=== PATIENT | female | born 1960 | race Caucasian/White ===

== ENCOUNTER 2018-05-20 11:34 | Emergency (ER) | payer BC, OTHER ==
[2018-05-20] MEDS ORDERED: TORAdol 30 mg Injection IV ONE (13:12)
[2018-05-20] MEDS ORDERED: VALIUM 10 MG/2 ML SYRINGE IV ONE (13:12)
[2018-05-20] MEDS ORDERED: Sodium Chloride 0.9% 1000 ML 1,000 ML IV SCH (13:15)
[2018-05-20] MEDS ORDERED: TORAdol 30 mg Injection ONE (13:17)
[2018-05-20] MEDS ORDERED: Sodium Chloride 0.9% 1000 ML 1,000 ML ONE (13:18)
[2018-05-20 13:29] LABS: BASOPHIL % 0.7 % (0.0-0.4); Basophil (Absolute #) 0.05 (0-0.4); Eosinophil (Absolute #) 0.28 (0-0.5); Granulocyte Absolute (ANC) 4.47 (1.4-6.9); Granulocytes % 63.1 % (36.0-66.0); Hematocrit 39.4 % (35-47); Hemoglobin 13.3 gm/dl (12.0-16.0); Lymphocyte (Absolute #) 1.76 (1.0-4.6); Lymphocytes % 24.9 % (24.0-44.0); Mean Corpuscular Hemoglobin 30.4 pg (26-32); Mean Corpuscular Hgb Concent. 33.8 g/dl (32-36); Mean Platelet Volume 9.3 fl (6-9.5); Monocyte (Absolute #) 0.52 (0.0-1.3); Monocytes % 7.3 % (0.0-12.0); Platelet Count 276 K/mm3 (150-450); Red Blood Count 4.38 M/mm3 (4.1-5.4); Red Cell Distribution Width 12.8 % (11.5-14.0); White Blood Count 7.1 K/mm3 (4.0-10.5)
[2018-05-20] MEDS ORDERED: Zofran 4 MG/2 ML VIAL IV ONE (13:42)
[2018-05-20] MEDS ORDERED: Hydromorphone 1 mg/ml Ampule IV ONE (13:42)
[2018-05-20] MEDS ORDERED: Hydromorphone 1 mg/ml Ampule ONE (13:45)
--- NOTE | 2018-05-20 13:45 | XRAY ---
Indication: Right posterior chest pain. Comparison: None PA/lateral chest demonstrates normal heart and lungs with overlying monitoring leads. Bony thorax intact with mild double curvature scoliosis.
[2018-05-20] MEDS ORDERED: Zofran 4 MG/2 ML VIAL ONE (13:50)
--- NOTE | 2018-05-20 13:50 | XRAY ---
Indication: Scapular pain. No known injury. Comparison: None 3 views of the right shoulder demonstrates tiny humeral head and glenoid process bone islands. No other bony, articular, or soft tissue abnormalities.
[2018-05-20 14:09] LABS: ANION GAP 10.2 MEQ/L (5-15); BLOOD UREA NITROGEN 12 mg/dL (7-17); CHLORIDE 108 mmol/L (98-107); Calcium 9.2 mg/dL (8.4-10.2); Carbon Dioxide 26 mmol/L (22-30); Creatinine 1 0.83 mg/dL (0.52-1.04); Glucose 97 mg/dL (74-106); Potassium 4.1 mmol/L (3.5-5.1); SODIUM 140 mmol/L (137-145)
[2018-05-20 14:24] VITALS: BP 106/71; PULSE 59; O2SAT 96
--- NOTE | 2018-05-20 14:40 | ERPHSYRPT ---
- History of Present Illness Time Seen by Provider: 05/20/18 12:30 Source: patient Exam Limitations: clinical condition Patient Subjective Stated Complaint: PAIN TO RIGHT SHOULDER AND ARM. 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 PT DENIES ANY CHEST PAIN OR SOB STATES SHE FEELS ARM "JUMPING" AND PRESSURE TO ARM AND BELOW ARM Physician History: PATIENT WITH A HISTORY OF LOW BACK PAIN, COMPLAINS OF RIGHT UPPER BACK AND SEVERE RIGHT SHOULDERBLADE PAIN. DENIES INJURY OR TRAUMA. DENIES CHEST PAIN, DYSPNEA, DIAPHORESIS OR PALPITATIONS. Timing/Duration: yesterday Method of Injury: other (DENIES INJURY OR TRAUMA) Back Pain Location: T-spine (ADJACENT TO RIGHT SHOULDER BLADE) Severity of Pain-Max: severe Severity of Pain-Current: severe Modifying Factors: Improves With: movement Associated Symptoms: denies symptoms Allergies/Adverse Reactions: No Known Drug Allergies Allergy (Unverified 05/20/18 12:18) Hx Influenza Vaccination/Date Given: No - Review of Systems Constitutional: No Fever, No Chills Eyes: No Symptoms Ears, Nose, & Throat: No Symptoms Respiratory: No Symptoms, No Cough, No Dyspnea Cardiac: No Symptoms, No Chest Pain, No Edema, No Syncope Abdominal/Gastrointestinal: No Symptoms, No Abdominal Pain, No Nausea, No Vomiting, No Diarrhea Genitourinary Symptoms: No Symptoms, No Dysuria Musculoskeletal: Back Pain, No Neck Pain Skin: No Rash Neurological: No Dizziness, No Focal Weakness, No Sensory Changes Psychological: No Symptoms Endocrine: No Symptoms All Other Systems: Reviewed and Negative - Past Medical History Pertinent Past Medical History: Yes Female Reproductive Disorders: Cervical Cancer - Past Surgical History Past Surgical History: Yes Female Surgical History: Tubal Ligation - Social History Smoking Status: Current every day smoker - Nursing Vital Signs Nursing Vital Signs: Initial Vital Signs Temperature 98.5 F 05/20/18 12:19 Pulse Rate 71 05/20/18 12:19 Respiratory Rate 18 05/20/18 12:19 Blood Pressure 137/88 05/20/18 12:19 O2 Sat by Pulse Oximetry 99 05/20/18 12:19 Pain Scale Pain Intensity 5 - Physical Exam SpO2: 96 - Course EKG Interpreted by Me: RATE, Sinus Rhythm, NORMAL AXIS - Radiology Exams Chest X-ray Interpretation: Discussed w/ radiologist, Negative, No Infiltrates Right Shoulder X-ray Interpretation: Discussed w/ radiologist, Negative Ordered Tests: Active Orders 24 hr Category Date Time Status EKG-ER Only STAT Care 05/20/18 13:10 Active Sling Application STAT Care 05/20/18 14:48 Active CHEST 2 VIEWS (PA AND LAT) Stat Exams 05/20/18 13:10 Completed SHOULDER Stat Exams 05/20/18 13:13 Completed BMP Stat Lab 05/20/18 13:27 Completed CBC W DIFF Stat Lab 05/20/18 13:27 Completed TROPONIN Q3H Lab 05/20/18 13:53 Completed TROPONIN Q3H Lab 05/20/18 16:15 Ordered TROPONIN Q3H Lab 05/20/18 19:15 Ordered TROPONIN Q3H Lab 05/20/18 22:15 Ordered TROPONIN Q3H Lab 05/21/18 01:15 Ordered Medication Summary Generic Name Dose Route Start Last Admin Trade Name Freq PRN Reason Stop Dose Admin Sodium Chloride 1,000 mls @ 100 mls/hr 05/20/18 13:15 05/20/18 13:24 Sodium Chloride 0.9% 1000 Ml IV 06/19/18 13:14 100 mls/hr .Q10H REINIER Administration Discontinued Medications Generic Name Dose Route Start Last Admin Trade Name Freq PRN Reason Stop Dose Admin Diazepam 5 mg 05/20/18 13:12 05/20/18 13:24 Valium 10 Mg/2 Ml Syringe IV 05/20/18 13:13 5 mg STAT ONE Administration Hydromorphone HCl 1 mg 05/20/18 13:42 05/20/18 13:44 Hydromorphone 1 Mg/Ml Ampule IV 05/20/18 13:43 1 mg STAT ONE Administration Hydromorphone HCl Confirm 05/20/18 13:45 Hydromorphone 1 Mg/Ml Ampule Administered 05/20/18 13:46 Dose 1 mg .ROUTE .STK-MED ONE Ketorolac Tromethamine 30 mg 05/20/18 13:12 05/20/18 13:24 Toradol 30 Mg Injection IV 05/20/18 13:13 30 mg STAT ONE Administration Ketorolac Tromethamine Confirm 05/20/18 13:17 Toradol 30 Mg Injection Administered 05/20/18 13:18 Dose 30 mg .ROUTE .STK-MED ONE Ondansetron HCl 4 mg 05/20/18 13:42 05/20/18 13:51 Zofran 4 Mg/2 Ml Vial IV 05/20/18 13:43 4 mg STAT ONE Administration Ondansetron HCl Confirm 05/20/18 13:50 Zofran 4 Mg/2 Ml Vial Administered 05/20/18 13:51 Dose 4 mg .ROUTE .STK-MED ONE Lab/Rad Data: Laboratory Result Diagrams 05/20/18 13:27 05/20/18 13:27 Laboratory Results 05/20/18 05/20/18 05/20/18 Range/Units 13:53 13:27 13:27 WBC 7.1 (4.0-10.5) K/mm3 RBC 4.38 (4.1-5.4) M/mm3 Hgb 13.3 (12.0-16.0) gm/dl Hct 39.4 (35-47) % MCV 90.0 (78-100) fl MCH 30.4 (26-32) pg MCHC 33.8 (32-36) g/dl RDW 12.8 (11.5-14.0) % Plt Count 276 (150-450) K/mm3 MPV 9.3 (6-9.5) fl Gran % 63.1 (36.0-66.0) % Eos # (Auto) 0.28 (0-0.5) Absolute Lymphs (auto) 1.76 (1.0-4.6) Absolute Monos (auto) 0.52 (0.0-1.3) Lymphocytes % 24.9 (24.0-44.0) % Monocytes % 7.3 (0.0-12.0) % Eosinophils % 4.0 (0.00-5.0) % Basophils % 0.7 (0.0-0.4) % Absolute Granulocytes 4.47 (1.4-6.9) Basophils # 0.05 (0-0.4) Sodium 140 (137-145) mmol/L Potassium 4.1 (3.5-5.1) mmol/L Chloride 108 H (98-107) mmol/L Carbon Dioxide 26 (22-30) mmol/L Anion Gap 10.2 (5-15) MEQ/L BUN 12 (7-17) mg/dL Creatinine 0.83 (0.52-1.04) mg/dL Estimated GFR > 60.0 ML/MIN Glucose 97 (74-106) mg/dL Calcium 9.2 (8.4-10.2) mg/dL Troponin I < 0.012 (0.000-0.034) ng/mL - Progress Progress: improved, pain not gone completely Progress Note: 05/20/18 14:35 ADMINISTERED IV NORMAL SALINE 100ML/HR, VALIUM 5MG, TORADOL 30MG AND DILAUDID 1MG IV, APPLICATION RIGHT ARM SLING Counseled pt/family regarding: lab results, diagnosis, rad results - Departure Time of Disposition: 14:50 Departure Disposition: Home Clinical Impression: MUSCLE SPASMS RIGHT UPPER BACK Condition: Stable Critical Care Time: No Referrals: DOCTOR,NO FAMILY [Primary Care Provider] - Additional Instructions: FOLLOWUP WITH YOUR FAMILY PHYSICIAN FOR EVALUATION, PHYSICAL THERAPY REFERRAL. TORADOL 10MG EVERY 6 HOURS NEEDED FOR PAIN. NORFLEX 100MG TWICE DAILY FOR MUSCLE SPASMS. ULTRAM 50MG EVERY 6 HOURS FOR MODERATE PAIN DISCOMFORT. WEAR ARM SLING FOR COMFORT, REMOVE EVERY OTHER 4 HOURS FOR 5 DAYS. Prescriptions: Ketorolac Tromethamine [Toradol] 10 mg PO Q6H PRN PRN #20 tablet PRN Reason: Pain Tramadol HCl 50 mg [Ultram 50 mg] 50 mg PO Q6H PRN PRN #15 tablet PRN Reason: Pain Orphenadrine Citrate 100 mg [Norflex 100 MG Tablet] 100 mg PO BID #10 tab
== END 2018-05-20 15:19 | disposition home or self-care (01) ==
LOC: ED 11:34
DX: M62.830 Muscle spasm of back (principal); M25.511 Pain in right shoulder; M54.6 Pain in thoracic spine
CPT/HCPCS: 36415; 71046; 73030; 80048; 84484; 85025; 93005; 96360; 96361; 96374; 96375; 99284; J1170; J1885; J2405; J3360

== ENCOUNTER 2020-02-12 11:01 | Day surgery (SDC) | payer OTHER ==
[~2020-02-12 11:01] MED LIST: XYLOCAINE 1% HCL 20 ML MDV ONE
[2020-02-12] MEDS ORDERED: Zofran 4 MG/2 ML VIAL IV PRN (11:24)
[2020-02-12] MEDS ORDERED: Lactated Ringers 1,000 ML IV ONE (11:25)
[2020-02-12] MEDS ORDERED: Levofloxacin 500MG/100ML D5W 500 MG/100 ML BAG IV SCH (11:45)
[2020-02-12] MEDS ORDERED: Lactated Ringers 1,000 ML IV SCH (12:00)
[2020-02-12] MEDS ORDERED: Versed 2 MG/2 ML Injection ONE ×2 (12:30→12:51)
[2020-02-12] MEDS ORDERED: DIPRIVAN 200 MG/20 ML IV ONE ×3 (12:36→12:37)
[2020-02-12] MEDS ORDERED: Lactated Ringers 0 ML IV ONE (12:38)
[2020-02-12] MEDS ORDERED: SUBLIMAZE 100 MCG/2 ML ONE (12:51)
--- NOTE | 2020-02-12 13:36 | HP ---
CHIEF COMPLAINT: This is a patient has diagnosis of metastatic adenocarcinoma unknown primary. HISTORY: This is a patient who has been seen initially by my partner and now her care has been taken over by me. I have been speaking closely with oncology, Dr. Pastrana, regarding all of her findings and at this point she has metastatic adenocarcinoma of unknown primary and she would like to undergo port placement to start chemotherapy. She understands that we do not have a definitive target. We have suspicion but she does not want to undergo the diagnostic laparoscopy to do any possible biopsies and/or diverting ostomy. At this time she would like to start chemo first. She understands all of these risks, benefits and alternatives. Please see my office note for further details on this. The patient was seen today personally and any remaining questions answered. H&P reviewed and confirmed as well with her. PAST MEDICAL/SURGICAL HISTORY: Includes history of cervical cancer. She has had radiation, chemo with significant rectal stricture that has been symptomatic for years. She has also had a tubal ligation. MEDICATIONS: Omeprazole. ALLERGIES: PENICILLIN. SOCIAL HISTORY: Positive tobacco use. PHYSICAL EXAMINATION: GENERAL: No acute distress. CVS: Regular rate and rhythm. PULMONARY: Nonlabored. Prior port scar left side. ABDOMEN: Soft. She has mild tenderness which is chronic throughout her abdomen more so on the right side. No rebound. No guarding. EXTREMITIES: Normal. DIAGNOSIS: Adenocarcinoma unknown primary, needs a port for chemotherapy access for treatment. PLAN: Port placement.
--- NOTE | 2020-02-12 13:47 | XRAY ---
Indication: Port placement. Intraoperative fluoroscopy was provided for 18 seconds. 2 digital spot images submitted for interpretation demonstrates left Port-A-Cath with tip projecting over the SVC. Correlate with intraoperative findings/report.
--- NOTE | 2020-02-12 14:15 | XRAY ---
Indication: Port placement. Comparison: May 20, 2018. Portable chest demonstrates new left Port-A-Cath with tip projecting over SVC and minimal left base subsegmental atelectasis/scarring. Remaining heart and lungs unremarkable. Bony thorax intact again with mild double curvature scoliosis.
[2020-02-12 14:42] VITALS: O2SAT 98
[2020-02-12 15:09] VITALS: BP 127/83; PULSE 88
--- NOTE | 2020-02-13 09:25 | OP ---
SURGERY DATE/TIME: 02/12/2020 1256 PREOPERATIVE DIAGNOSIS: Metastatic adenocarcinoma of unknown primary origin, needs port for access for treatment for care home central venous access. 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 PROCEDURE: Left subclavian vein fluoroscopic guided, tunnel Port-A-Cath placement. SURGEON: Lisa Peterson M.D. ANESTHESIA: MAC. COMPLICATIONS: None. ESTIMATED BLOOD LOSS: Minimal. SPECIMENS: None. IMPLANTS: Port. INDICATION: This is a patient who has metastatic adenocarcinoma of unknown primary origin. She is here for port placement for care home venous access. All risks, benefits, alternatives of the procedure have been discussed in detail with the patient as well as alternatives. She has elected to have the port placed and she will be seeing Dr. Pastrana for chemotherapy treatment options tomorrow. All H&P details were reviewed with her, confirmed and her consent was reviewed and confirmed and any remaining questions answered. DESCRIPTION OF PROCEDURE: The patient was then brought to the operative suite. Anesthesia induced. Prepped and draped in the usual sterile fashion. A complete time out performed. I then accessed the right subclavian vein with dark venous nonpulsatile blood return. A wire here did not thread and so we removed the catheter and then I accessed the vein from a slightly more lateral position and the wire threaded very easily with no issues at all. Dark venous nonpulsatile blood return. Wire threaded into good location. After a subcutaneous port pocket was created we sutured the port into the pocket using Prolene suture on stay hemostat. The catheter was then tunneled. It was measured along the chest wall, cut to appropriate length and fit tightly onto the port. Dilator was passed. Catheter placed into the dilator and tear away removed in the usual fashion. Port secured well, flushed well and it was checked under fluoroscopic guidance. Excellent location. No issues. We then tied down the Prolene sutures and closed with 3-0 Vicryl, running 4-0 subcuticular Monocryl stitch and then a buried Monocryl at the access site. Steri-Strips and sterile dressing placed. The patient tolerated the procedure very well. No issues with postoperative chest x-ray. All inspections discussed with the patient preoperatively and then with her family postoperatively. She will be following with me in the office as well as with Dr. Pastrana.
== END 2020-02-12 15:00 | disposition home or self-care (01) ==
LOC: SDC 11:01
PROVIDERS: ATTEND Surgery
DX: C79.9 Secondary malignant neoplasm of unspecified site (principal); Z85.41 Personal history of malignant neoplasm of cervix uteri
CPT/HCPCS: 36571; 71045; 77001; C1788; J1642; J2250; J2405; J2704; J3010